=== PATIENT | female | born 1995 | race African-American/Black ===

== ENCOUNTER 2023-01-10 04:43 | Inpatient (IN) ==
[2023-01-10 05:50] LABS: ABS Lymphocytes 1.7 10^3/uL (1.0-4.8); ABS Monocytes 0.5 10^3/uL (0.0-0.9); ABS Nucleated RBC 0.01 10^3/ul; Eosinophil % 0.6 %; Hemoglobin 10.5 g/dL (11.5-14.3); Lymphocyte % 26.6 %; Mean Corpuscular Hemoglobin 30.2 pg (27-33); Mean Corpuscular Hgb Conc 33.9 g/dL (31-36); Mean Corpuscular Volume 89.3 fL (80-97); Mean Platelet Volume 8.1 fL (7.5-11.2); Nucleated Red Blood Cells % 0.1 /100 WBC (0.0-0.4); Platelet Count 221 10^3/uL (150-450); Red Blood Count 3.48 10^6/uL (3.63-4.92); Red Cell Distribution Width 12.7 % (12-17); White Blood Count 6.3 10^3/uL (3.8-11.8)
[2023-01-10] MEDS ORDERED: Lactated Ringers 1000 ml BAG 1,000 ML IV SCH ×3 (06:00→11:00)
[2023-01-10] MEDS ORDERED: Lactated Ringers 1000 ml BAG 1,000 ML IV ONE (06:00)
[2023-01-10] MEDS ORDERED: ceFOXitin 2 GM IVPREMIX 2 GM/50 ML BAG IVPB ONE (06:00)
[2023-01-10] MEDS ORDERED: Sodium Citrate/Citric Acid LIQ 15 ML UDC PO ONE ×2 (06:00)
[2023-01-10] MEDS ORDERED: Buffered Lidocaine 1% SYRIN 1 ml INTRADERM ONE ×2 (06:00)
[2023-01-10 07:00] LABS: Urine Benzodiazepine Screen None Detected (None Detect)
[2023-01-10 07:01] LABS: Urine Cannabinoids Screen None Detected (None Detect); Urine Opiates Screen None Detected (None Detect)
[2023-01-10] MEDS ORDERED: Naloxone 0.4 mg VIAL 0.4 mg/ml 1 ml VIAL IV PRN (07:29)
[2023-01-10] MEDS ORDERED: fentaNYL 100 mcg/2 ml 50 MCG/ML VIAL IV PRN (07:29)
[2023-01-10] MEDS ORDERED: Dexamethasone IV 4 MG/ML VIAL 1 ml VIAL ONE (07:45)
[2023-01-10] MEDS ORDERED: Ondansetron 4 mg VIAL 2 MG/ML 2 ml VIAL ONE (07:45)
[2023-01-10] MEDS ORDERED: Oxytocin 10 UNITS/ML 1 ML VIAL ONE (07:45)
[2023-01-10] MEDS ORDERED: Morphine PF AMP (0.5MG/ML) 5 MG/10 ML AMP ONE (08:13)
[2023-01-10] MEDS ORDERED: Bupivacaine-MPF SPINAL 7.5 MG/ML - 2ML AMP ONE (08:40)
[2023-01-10] MEDS ORDERED: Acetaminophen IV 1 GM/100ML 1,000 MG/100 ML BAG IV ONE (09:08)
[2023-01-10] MEDS ORDERED: Metoclopramide 5 MG/ML VIAL (10 mg) IV PRN (09:49)
[2023-01-10] MEDS ORDERED: Naloxone 0.4 mg VIAL 0.4 mg/ml 1 ml VIAL IV PUSH PRN (09:49)
[2023-01-10] MEDS ORDERED: Acetaminophen IV 1 GM/100ML 1,000 MG/100 ML BAG IV PRN (09:49)
[2023-01-10] MEDS ORDERED: Ondansetron 4 mg VIAL 2 MG/ML 2 ml VIAL IV PRN (09:49)
[2023-01-10 09:53] LABS: Urine Appearance Clear; Urine Bilirubin Negative (Negative); Urine Blood Negative (Negative); Urine Color Straw; Urine Glucose Negative (Negative); Urine Ketones 1+ (Negative); Urine Nitrite Negative (Negative); Urine Protein Negative (Negative); Urine Specific Gravity 1.004 (1.002-1.030); Urine Urobilinogen Negative (Negative)
[2023-01-10] MEDS ORDERED: Witch Hazel PAD JAR TOPICAL PRN (10:25)
[2023-01-10] MEDS ORDERED: Glycerin ADULT 2.4 gm SUPP PR PRN (10:25)
[2023-01-10] MEDS ORDERED: Dibucaine 1% OINT 28.35 GM TUBE PR PRN (10:25)
[2023-01-10] MEDS ORDERED: RHO D Immune Globulin (HUMAN) 300 MCG = 1,500 I.U. INJ IM PRN (10:25)
[2023-01-10] MEDS ORDERED: Oxytocin in LR 20,000 MILLI.UNIT/1,000 ML BAG IV SCH (10:30)
[2023-01-11 08:06] LABS: ABS Lymphocytes 1.6 10^3/uL (1.0-4.8); ABS Monocytes 1.1 10^3/uL (0.0-0.9); ABS Neutrophils 9.8 10^3/uL (1.5-7.6); ABS Nucleated RBC 0.01 10^3/ul; Eosinophil % 0.1 %; Hematocrit 24.3 % (35-45); Hemoglobin 8.1 g/dL (11.5-14.3); Lymphocyte % 12.8 %; Mean Corpuscular Hemoglobin 29.6 pg (27-33); Mean Corpuscular Hgb Conc 33.2 g/dL (31-36); Mean Corpuscular Volume 89.2 fL (80-97); Mean Platelet Volume 8.1 fL (7.5-11.2); Platelet Count 189 10^3/uL (150-450); Red Blood Count 2.72 10^6/uL (3.63-4.92); Red Cell Distribution Width 12.5 % (12-17); White Blood Count 12.5 10^3/uL (3.8-11.8)
[2023-01-12 08:03] VITALS: BP 122/65
== END 2023-01-12 15:53 | disposition home or self-care (01) | DRG 540 ==
LOC: MCHOB 04:43
PROVIDERS: ADMIT Obstetrics & Gynecology; ATTEND Obstetrics & Gynecology